=== PATIENT | female | born 1930 | race Caucasian/White ===

== ENCOUNTER 2017-04-17 16:34 | Emergency (ER) | payer MEDICARE, MEDICAID ==
[~2017-04-17] VITALS: Ht 152.4 cm; Wt 65.8 kg
[2017-04-17 16:45] VITALS: BP 147/63
[2017-04-17 19:00] VITALS: BP 147/63
--- NOTE | 2017-04-18 15:55 | Emergency Room Report ---
History of Present Illness General Chief Complaint: Generalized Weakness Source: Patient, Medical Record, EMS Present Illness HPI [id number] brought in for ?right sided facial swelling since yesterday Patient;s Son states that his "overreacted" and and his mother, the patient, has small area of swelling underneath the right eye. No associated fever, chills, headache, discharge from right eye or pain with extraocular movement. denies neck pain stiffness, or history of contact wearing Patient feels well otherwise. Contrary R. in triage note patient is not weak every week, patient's sons states that she is at baseline. Allergies: Coded Allergies: AMITRIPTYLINE (Verified Allergy, Unknown, dizzy, 04/17/17) ATORVASTATIN (Verified Allergy, Unknown, elevate alt, 04/17/17) CHOLESTYRAMINE (Verified Allergy, Unknown, ap, 04/17/17) CLONIDINE (Verified Allergy, Unknown, headache, 04/17/17) GEMFIBROZIL (Verified Allergy, Unknown, elevated alt, 04/17/17) LISINOPRIL (Verified Allergy, Unknown, cough, 04/17/17) NSAIDS (NON-STEROIDAL ANTI-INFLAMMA (Verified Allergy, Unknown, CRF, 04/17) SIMVASTATIN (Verified Allergy, Unknown, elevated alt, 04/17/17) SUCROSE (Verified Allergy, Unknown, ap, 04/17/17) Patient History Past Medical History: see triage record Past Surgical History: none Pertinent Family History: none Social History: Denies: smoking, alcohol use, drug use Last Menstrual Period: na Immunizations: UTD Reviewed Nursing Documentation: PMH: Agreed, PSxH: Agreed Nursing Documentation-PMH Past Medical History: No History, Except For Hx Cardiac Problems: Yes - high cholesterol, anemia, History Of Psychiatric Problem: Yes - dementia Review of Systems All Other Systems: negative except mentioned in HPI Physical Exam Vital Signs Date Time Temp Pulse Resp B/P (MAP) Pulse Ox O2 Delivery O2 Flow Rate FiO2 04/17/17 16:37 97.5 76 18 148/80 100 Room Air 04/17/17 16:45 2.0 Sp02 EP Interpretation: reviewed, normal General Appearance: normal inspection, well appearing, no apparent distress, alert, GCS 15, non-toxic Head: normocephalic, atraumatic Eyes: bilateral eye PERRL, bilateral eye EOMI ENT: normal ENT inspection, hearing grossly normal, normal pharynx, no angioedema, normal voice, TMs + canals normal, uvula midline, moist mucus membranes Neck: normal inspection, full range of motion, supple, thyroid normal, no meningismus, no bony tend Respiratory: normal inspection, lungs clear, normal breath sounds, no rhonchi, no respiratory distress, no retraction, no accessory muscle use, no wheezing, speaking full sentences Cardiovascular #1: regular rate, rhythm, no edema, no JVD, normal capillary refill Gastrointestinal: normal inspection, normal bowel sounds, non tender, soft, no mass, no peritonitis, non-distended, no guarding, no hernia, no pulsatile mass Genitourinary: no CVA tenderness Musculoskeletal: normal inspection, back normal, normal range of motion, no calf tenderness, pelvis stable, Jorge Alberto's Sign negative Neurologic: normal inspection, alert, oriented x3, responsive, finance officer III-XII nml as tested, motor strength/tone normal, cerebellar normal, normal gait, speech normal Psychiatric: normal inspection, judgement/insight normal, mood/affect normal, no suicidal/homicidal ideation, no delusions Skin: normal inspection, normal color, no rash, other - right sided of face: very small 2cm area of minimal swelling. No erythema. No redness. No crepitus. No discharge from eye. Lymphatic: normal inspection, no adenopathy Medical Decision Making Diagnostic Impression: Primary Impression: Eye swelling, right ER Course Swelling to right side of face No pain with EOM, unlikely orbital cellulitis No signs of conjunctivitis No contact wearing No rash or sign of infection Son also states patient recently completed Abx for "UTI" so this is unlikely to be infectious Advised supportive care, close PMD followup yo M F with DDX: Plan: Obtain labs, ua, ucx, ucg, CXR, EKG ER course: Patient has remained stable during ED stay. Disposition: Patient is to be discharged to home. Patient is instructed to follow up with their primary care doctor within 5 days. Strict return precautions discussed with patient such as fever, chills, worsening/severe pain, nausea, vomiting, which may indicate severe illness. Patient verbalizes understanding and agrees with plan. Please note that this Emergency Department Report was dictated using [employer] registrar technology software, occasionally this can lead to erroneous entry secondary to interpretation by the dictation equipment Last Vital Signs Date Time Temp Pulse Resp B/P (MAP) Pulse Ox O2 Delivery O2 Flow Rate FiO2 04/17/17 19:00 97.5 75 17 147/63 95 Nasal Cannula 2.0 Status: improved Disposition: HOME, SELF-CARE Condition: Improved Referrals: [facility] (PCP) Patient Instructions: Viral Conjunctivitis Additional Instructions: - Apply ice 2-3x a day to see if that reduces swelling - Followup with PMD in 2 days if swelling continues NICOLE ALMENDAREZ M.D. Apr 18, 2017 15:55
== END 2017-04-17 19:00 | disposition home or self-care (01) ==
LOC: EDBD 16:34 → EDSEX 16:34 → EMR 17:10
DX: H57.8 Other specified disorders of eye and adnexa (principal); F03.90 Unspecified dementia, unspecified severity, without behavioral disturbance, psychotic disturbance, mood disturbance, and anxiety; Z88.8 Allergy status to other drugs, medicaments and biological substances
CPT/HCPCS: 99282